=== PATIENT | female | born 1955 | race Two or more races ===

== ENCOUNTER 2021-01-15 05:30 | Day surgery (SDC) | payer OTHER ==
[~2021-01-15 05:30] MED LIST: IMODIUM A-D2 M2 PO; PEPCID AC20 MG PO; PROTONIX20 MG PO; TYLENOL ARTHRI650 MG PO
[2021-01-15] MEDS ORDERED: PERCOCET 5-3251 EACH PO (10:58)
== END 2021-01-15 16:35 | disposition home or self-care (01) ==
LOC: CIR.AMB 05:30
PROVIDERS: ATTEND Surgery
DX: K64.8 Other hemorrhoids (principal); K64.4 Residual hemorrhoidal skin tags; Z20.822 Contact with and (suspected) exposure to COVID-19

== ENCOUNTER 2023-01-27 05:00 | Day surgery (SDC) | payer OTHER ==
[~2023-01-27 05:00] MED LIST changes: +PERCOCET 5-3251 EACH PO
== END 2023-01-27 11:00 | disposition home or self-care (01) ==
LOC: AMB-ENDOS 05:00
PROVIDERS: ATTEND Surgery
DX: D12.7 Benign neoplasm of rectosigmoid junction (principal); D12.5 Benign neoplasm of sigmoid colon; K62.5 Hemorrhage of anus and rectum; K64.8 Other hemorrhoids; R93.5 Abnormal findings on diagnostic imaging of other abdominal regions, including retroperitoneum; K57.30 Diverticulosis of large intestine without perforation or abscess without bleeding; K62.89 Other specified diseases of anus and rectum; Z20.822 Contact with and (suspected) exposure to COVID-19